=== PATIENT | male | born 1960 | race Caucasian/White ===

== ENCOUNTER 2017-09-17 13:28 | Emergency (ER) | payer OTHER, SELFPAY ==
[~2017-09-17] VITALS: Ht 180.3 cm; Wt 80.7 kg
[~2017-09-17 13:28] MED LIST: ABILIFY 5 MG TAB5 M1 PO; ABILIFY10 MG OR; ADDERALL 10 MG10 MG OR; ADDERALL OR; ADULT LOW DOSE81 MG PO; ALIGN4 MG PO; AMOXICILLIN500 M1 PO; AMPHETAMINE SAL15 MG PO; B-12 COMPL1000 MCG/1 IM; B12INJ OR; BACLOFEN 10MG T10 M1 OR; BACLOFEN 10MG T10 MG PO; BAYER CHEWABLE81 MG PO; BRILINTA90 MG PO; CIPROFLOXACIN500 M1 OR; CIPROFLOXACIN500 M1 PO; CLONAZEPAM 1 MG1 M1 PO; CLONAZEPAM OR; COLACE100 MG OR; COLACE100 MG PO; CYMBALTA30 MG OR; CYMBALTA60 MG PO; DULCOLAX5 MG OR; FLAGYL500 MG OR; FLAGYL500 MG PO; HYDROCODON-ACE1 EA12 PO; HYDROCODON-ACE1 EAC1 OR; HYDROCODON-ACE1 EAC7 OR; HYDROCODON-ACE1 EAC7 PO; HYDROCODONE-APA1 TA1 PO; IMDUR 30 MG TAB30 M1 PO; NASONEX17 GM NS; NITROGLYCERIN0.4 MG SL; PERCOCET 5-3251 EACH PO; PLAVIX 75 MG TA75 MG PO; REQUIP3 MG OR; REQUIP3 MG PO; SIMVASTATIN40 MG PO
[2017-09-17] MEDS ORDERED: PLAVIX 75 MG TA75 M1 PO (13:48)
[2017-09-17] MEDS ORDERED: BACLOFEN 10MG T10 MG PO (15:23)
[2017-09-17] MEDS ORDERED: OXYCODONE HCL 55 MG PO (15:23)
[2017-09-17] MEDS ORDERED: PREDNISONE 20 M20 MG PO (15:23)
[2017-09-17 15:36] VITALS: BP 158/97
== END 2017-09-17 15:30 | disposition home or self-care (01) ==
LOC: ER 13:28
DX: M54.5 Low back pain (principal); F17.210 Nicotine dependence, cigarettes, uncomplicated; G45.9 Transient cerebral ischemic attack, unspecified; I25.2 Old myocardial infarction; D45 Polycythemia vera; K50.90 Crohn's disease, unspecified, without complications; E78.5 Hyperlipidemia, unspecified; C62.90 Malignant neoplasm of unspecified testis, unspecified whether descended or undescended; Z88.8 Allergy status to other drugs, medicaments and biological substances

== ENCOUNTER 2017-09-21 14:54 | Inpatient (IN) | payer OTHER, SELFPAY ==
[~2017-09-21] VITALS: Ht 180.3 cm; Wt 83.9 kg
[2017-09-21 14:54] VITALS: BP 178/111
[~2017-09-21 14:54] MED LIST changes: +OXYCODONE HCL 55 MG PO; +PLAVIX 75 MG TA75 M1 PO; +PREDNISONE 20 M20 MG PO
[2017-09-21 16:09] LABS: CALCIUM 9.1 mg/dL (8.5-10.1); CREATININE 0.8 mg/dL (0.7-1.3); POTASSIUM 3.9 mmol/L (3.5-5.1)
[2017-09-21 18:02] VITALS: BP 168/96
[2017-09-21 19:43] VITALS: BP 172/88
[2017-09-21 19:45] VITALS: BP 184/118
[2017-09-22 00:21] VITALS: BP 148/88
[2017-09-22 04:30] VITALS: BP 161/101
[2017-09-22 08:55] VITALS: BP 172/114
[2017-09-22 16:00] VITALS: BP 119/78
[2017-09-22 20:00] VITALS: BP 111/72
[2017-09-23 04:00] VITALS: BP 145/89
[2017-09-23 07:38] VITALS: BP 146/99
[2017-09-23 12:54] VITALS: BP 138/84
[2017-09-23 15:25] VITALS: BP 123/69
[2017-09-23 19:17] VITALS: BP 136/82
[2017-09-24 00:09] VITALS: BP 138/89
[2017-09-24 03:30] VITALS: BP 147/93
[2017-09-24] MEDS ORDERED: OXYCODONE HCL 55 MG PO (08:24)
[2017-09-24] MEDS ORDERED: BACLOFEN 10MG T10 MG PO (08:24)
[2017-09-24] MEDS ORDERED: PREDNISONE 10 M10 MG PO (08:28)
[2017-09-24 09:49] VITALS: BP 145/80
== END 2017-09-24 13:04 | disposition home or self-care (01) | DRG 552 ==
LOC: ER 14:54 → EROBS 17:34 → 4E 17:34
PROVIDERS: Emergency Medicine
DX: M51.16 Intervertebral disc disorders with radiculopathy, lumbar region (principal); K50.90 Crohn's disease, unspecified, without complications; E78.5 Hyperlipidemia, unspecified; F98.8 Other specified behavioral and emotional disorders with onset usually occurring in childhood and adolescence; G35 Multiple sclerosis; G47.30 Sleep apnea, unspecified; Z85.841 Personal history of malignant neoplasm of brain; Z86.73 Personal history of transient ischemic attack (TIA), and cerebral infarction without residual deficits; I25.2 Old myocardial infarction; Z85.47 Personal history of malignant neoplasm of testis; Z79.899 Other long term (current) drug therapy; Z88.8 Allergy status to other drugs, medicaments and biological substances; Z87.891 Personal history of nicotine dependence; Z28.21 Immunization not carried out because of patient refusal
CPT/HCPCS: 10084

== ENCOUNTER → 2019-09-26 | Outpatient (CLI) | payer OTHER ==
[~2019-09-26] MED LIST changes: +PREDNISONE 10 M10 MG PO
== END ==
LOC: NUC 07:11
DX: I25.10 Atherosclerotic heart disease of native coronary artery without angina pectoris (principal); I25.2 Old myocardial infarction; Z95.5 Presence of coronary angioplasty implant and graft; Z87.891 Personal history of nicotine dependence

== ENCOUNTER → 2021-01-12 | Outpatient (CLI) | payer OTHER | LOC: CAT 09:10 | PROVIDERS: ATTEND Internal Medicine | DX: I73.9 Peripheral vascular disease, unspecified (principal); I70.0 Atherosclerosis of aorta ==

== ENCOUNTER 2021-04-04 18:35 | Inpatient (IN) | payer OTHER ==
[~2021-04-04] VITALS: Ht 180.3 cm; Wt 92.0 kg
--- NOTE | ~2021-04-04 | EMS ---
[address] [address] EMS Patient Care Report Name: RANCHO FREEMAN Room #: 170-6 ADM IN M.R.#: [id number] Admission: 04/04/21 Attend Phys: Silvia Malone MD Discharge: Date of : 62 Report #: [id number] THIS REPORT FOR: //name// Report Transmitted: 04/04/2021 19:43 EMS Care Summary [facility] MED-ACT Incident [id number] @ 04/04/2021 17:47 Incident Location [address] [place] [address] Patient RANCHO FREEMAN Male, 61 Years 1960 Patient Address [address] [place] [address] Patient History Hypertension (HTN),Hyperlipidemia,Cardiac - Stent,Restless Leg Syndrome, Patient Allergies Fentanyl, Patient Medications Isosorbide, Hydrocodone, Aspirin, Nitroglycerin, Clopidogrel, Requip, Baclofen, Abilify, Diltiazem, Cymbalta, Clonazepam, Chief Complaint Syncope Disposition Transported No Lights/[place] Dispatch Reason Heart Problems/AICD Transported To [facility] Narrative [id number] found the pt lying on the floor being attended to by Storm HARMAN and JEEVAN at [facility]. The report from MARY was that the pt was having chest pain about an hour prior to EMS activation, and also had a syncopal episode. He stated that [address] [address] EMS Patient Care Report Name: RANCHO FREEMAN Room #: 170-6 ADM IN [facility]#: [id number] Admission: 04/04/21 Attend Phys: Silvia Malone MD Discharge: Date of : 62 Report #: [id number] he was sitting in his chair when he started to get hot and "blacked out". The pt would get agitated with EMS while trying to get assessments done, or when EMS would ask him about what complaints he was having. The pt denies any shortness of breath, headaches, blurred vision, abdominal pain, diarrhea, recent illness, or recent trauma. The pt was able to walk outside to the cot. The pt refused EMS IV while en route. He stated that he just wanted the ER to do it. The pt's condition remained unchanged en route and with hand off to ED RN. The pt was able to slide himself from EMS cot to ED bed. 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 CLEANER HAND,BP: 121/72 M,PULSE: 48,RR: 14 R,SPO2: 96 Ox,ETCO2: ,B,PAIN: 0,GCS: 15, 17:46,Call Received 17:46,Psap Call 17:47,Dispatched 17:48,En Route 17:56,On Scene 17:58,At Patient 17:59,ALS Assessment,Response: UnchangedSucceeded, 17:59,BP: / M,PULSE: 49,RR: R,SPO2: Ox,ETCO2: ,BG: ,PAIN: 0,GCS: , 18:07,12-Lead ECG,Response: UnchangedSucceeded, 18:07,BP: / M,PULSE: 53,RR: R,SPO2: Ox,ETCO2: ,BG: ,PAIN: ,GCS: , 18:18,BP: 155/84 M,PULSE: 49,RR: 14 R,SPO2: 99 Ox,ETCO2: ,BG: ,PAIN: ,GCS: , 18:19,12-Lead ECG,Response: UnchangedSucceeded, 18:19,BP: / M,PULSE: 51,RR: 14 R,SPO2: 98 Ox,ETCO2: ,BG: ,PAIN: 0,GCS: , 18:20,Depart Scene 18:25,Aspirin - 243 Milligrams (mg) - Oral,Response: Improved [facility] [address] [place] [address] EMS Patient Care Report Name: RANCHO FREEMAN Room #: 170-6 ADM IN M.R.#: [id number] Admission: 04/04/21 Attend Phys: Silvia Malone MD Discharge: Date of : 62 Report #: [id number] 18:25,BP: 126/76 M,PULSE: 51,RR: 14 R,SPO2: 97 Ox,ETCO2: ,BG: ,PAIN: ,GCS: , 18:29,At Destination 18:48,Call Closed Disclaimer v1.1 Copyright 2020 [employer] This EMS Care Summary contains data elements from the applicable legal record (which may be displayed differently). It is designed to provide pertinent information for the following purposes: continuity of care, clinical quality, and state data reporting. The complete legal record is available to ED staff and administrators of the receiving hospital in [employer] Patient Tracker. All data is provided "as is."
[2021-04-04 19:11] LABS: ABSOLUTE NEUTROPHILS 5.1 thou/uL (1.4-8.2); BASOPHILS 0.9 % (0.0-2.0); EOSINOPHILS 0.9 % (0.0-3.0); HEMATOCRIT 44.8 % (42.0-52.0); HEMOGLOBIN 15.3 gm/dL (14.0-18.0); LYMPHOCYTES 15.8 % (24.0-44.0); MCH 31.1 pg (26.0-34.0); MCHC 34.2 g/dL (28.0-37.0); MCV 90.8 fL (80.0-100.0); MONOCYTES 6.7 % (1.0-8.0); PLATELET COUNT 128 thou/uL (150-400); POLYS 75.7 % (36.0-66.0); RBC 4.93 mil/uL (4.50-6.00); RDW 14.1 % (10.5-14.5); WBC 6.8 thou/uL (4.0-11.0)
[2021-04-04 19:14] LABS: ANION GAP 7 mmol/L (7-16); BUN 17 mg/dL (7-18); CALCIUM 8.8 mg/dL (8.5-10.1); CHLORIDE 104 mmol/L (98-107); CO2 29 mmol/L (21-32); CREATININE 1.1 mg/dL (0.7-1.3); GLUCOSE 106 mg/dL (74-106); POTASSIUM 4.2 mmol/L (3.5-5.1); SODIUM 140 mmol/L (136-145)
[2021-04-04 19:21] LABS: ALBUMIN 4.1 g/dL (3.4-5.0); SGPT 57 U/L (16-63); TOTAL PROTEIN 7.9 g/dL (6.4-8.2); TROPONIN-I <0.06 ng/mL (<0.06)
[2021-04-04 19:33] LABS: SGOT 24 U/L (15-37)
[2021-04-04 20:35] VITALS: BP 130/70
[2021-04-04 21:03] VITALS: BP 131/70
[2021-04-04 21:49] VITALS: BP 144/69
[2021-04-04] MEDS ORDERED: PLAVIX 75 MG TA75 MG PO (23:06)
[2021-04-04] MEDS ORDERED: DILTIAZEM ER180 M2 PO (23:07)
[2021-04-05 00:24] VITALS: BP 127/62
[2021-04-05 03:59] VITALS: BP 133/77
--- NOTE | 2021-04-05 04:11 | NUR ---
PT ARRIVED ON THE UNIT AT 2119 FROM ED. C/O INDIGESTION/NAUSEA, LEFT LEG PAIN, .ADMISSION ASSESSMENTS DOCUMENTED. PT LATER EXPRESSED RELIEF FROM INDIGESTION/NAUSEA AFTER MEDS GIVEN, NOW RESTING IN BED, DENIES PAIN.
[2021-04-05 04:24] LABS: CHOLESTEROL 144 mg/dL (<200); HDL CHOLESTEROL 61 mg/dL (>40); LDL CHOLESTEROL 70 mg/dL (<100); TC:HDL 2.4 Ratio (Not establshd); TRIGLYCERIDE 65 mg/dL (<150); VLDL 13 mg/dL (<40)
[2021-04-05 04:29] LABS: SERUM ASSESSMENT Clear
[2021-04-05 08:00] VITALS: BP 123/72
[2021-04-05 08:16] LABS: CALCIUM 9.1 mg/dL (8.5-10.1); POTASSIUM 4.1 mmol/L (3.5-5.1)
--- NOTE | 2021-04-05 09:22 | EKG ---
[place] [place] [address] [facility] [place] [address] ELECTROCARDIOGRAM REPORT Name: RANCHO FREEMAN Room #: 200-I ADM IN M.R.#: [id number] Admission: 04/04/21 Attend Phys: Silvia Malone MD Discharge: Date of : 62 Report #: [id number] 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
--- NOTE | 2021-04-05 09:22 | EKG ---
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 : 1960 Requested By: Catherine Logan Order Number: [id number] MD: Farhat Mariee Measurements Intervals [place] Rate: 55 P: 67 MN: 173 QRS: 36 QRSD: 79 T: -36 QT: 422 QTc: 404 Interpretive Statements Sinus rhythm Probable LVH with secondary repol abnrm Compared to ECG 10/23/2015 04:00:36 Sinus bradycardia no longer present Electronically Signed On 04-05-2021 9:22:41 CDT by Farhat Mariee [email or web address] <ELECTRONICALLY SIGNED> By: Farhat Mariee MD, [facility] 04/05/21 0922 1839 38 Farhat Mariee MD, FACC /EPI
--- NOTE | 2021-04-05 09:23 | EKG ---
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 04/05/21922 7 7 Farhat Mariee MD FACHemal /EPI
[2021-04-05 11:00] VITALS: BP 131/74
[2021-04-05 15:30] VITALS: BP 117/64
[2021-04-05 20:30] VITALS: BP 146/68
[2021-04-06 01:01] VITALS: BP 140/78
[2021-04-06 05:31] VITALS: BP 111/70
--- NOTE | 2021-04-06 07:31 | EKG ---
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
[2021-04-06 08:00] VITALS: BP 130/77
--- NOTE | 2021-04-06 10:03 | 2DMMODE ---
[facility] [place] [address] 2 D/M-MODE ECHOCARDIOGRAM Name: RANCHO FREEMAN Room #: 200-I ADM IN .R.#: [id number] Admission: 04/04/21 Attend Phys: Silvia Malone MD Discharge: Date of : 62 Report #: [id number] THIS REPORT FOR: cc: Jamari Amador MD, Christopher B. MD Santiago, Patrick MD [facility] ~ APPROVED REPORT Study performed: 04/06/2021 09:20:55 EXAM: Comprehensive 2D, Doppler, and color-flow Echocardiogram Patient Location: Bedside Room #: 200 Status: routine BSA: 2.12 HR: 63 bpm BP: 111/70 mmHg Rhythm: NSR Other Information Study Quality: Good Indications Chest Pain Hx: SC, stents, PVD, TIA. 2D Dimensions RVDd: 40.53 mm IVSd: 10.17 (7-11mm) LVOT Diam: 21.41 (18-24mm) LVDd: 47.87 mm PWd: 10.17 (7-11mm) Ascending Ao: 34.17 (22-36mm) LVDs: 34.63 (25-40mm) Left Atrium: 36.34 (27-40mm) Aortic Root: 36.00 mm Volumes Left Atrial Volume (Systole) Single Plane 4CH: 63.08 mL Single Plane 2CH: 51.54 mL LA ESV Index: 29.00 mL/m2 Aortic Valve AoV Peak Ricky.: 1.50 m/s AO Peak Gr.: 8.95 mmHg LVOT Max P.67 mmHg LVOT Max V: 1.19 m/s [facility] [address] [address] 2 D/M-MODE ECHOCARDIOGRAM Name: RANCHO FREEMAN Room #: 200-I [facility] IN [facility]#: [id number] Admission: 04/04/21 Attend Phys: Silvia Malone, Discharge: Date of : 62 Report #: [id number] [place] Vmax: 2.86 cm2 Mitral Valve E/A Ratio: 1.2 MV Decel. Time: 177.97 ms MV E Max Ricky.: 0.91 m/s MV A Ricky.: 0.74 m/s MV PHT: 51.61 ms IVRT: 69.20 ms Pulmonary Valve PV Peak Ricky.: 1.10 m/s PV Peak Gr.: 4.86 mmHg Pulmonary Vein P Vein S: 0.35 m/s P Vein D: 0.54 m/s P Vein S/D Ratio: 0.65 Tricuspid Valve TR Peak Ricky.: 3.17 m/s RAP Estimate: 5.00 mmHg TR Peak Gr.: 40.08 mmHg PA Pressure: 45.00 mmHg Left Ventricle The left ventricle is normal size. There is normal LV segmental wall motion. There is normal left ventricular wall thickness. Left ventricular systolic function is normal. LVEF is 55-60%. Moderate diastolic dysfunction is present (pseudonormal filling). Right Ventricle The right ventricle is normal size. The right ventricular systolic function is normal. Atria The left atrium size is normal. The right atrium size is normal. Aortic Valve The aortic valve is normal in structure. No aortic regurgitation is present. There is no aortic valvular stenosis. Mitral Valve The mitral valve is normal in structure. Mild mitral regurgitation. No evidence of mitral valve stenosis. Tricuspid Valve [facility] [place] [place] [address] 2 D/M-MODE ECHOCARDIOGRAM Name: RANCHO FREEMAN Room #: 200-I [facility] IN [facility]#: [id number] Admission: 04/04/21 Attend Phys: Silvia Malone, Discharge: Date of : 62 Report #: [id number] The tricuspid valve is normal in structure. Mild tricuspid regurgitation. Estiamted PAP is 45mmHg. Pulmonic Valve The pulmonary valve is normal in structure. Trace pulmonic regurgitation. Great Vessels The aortic root is normal in size. The ascending aorta is normal in size. IVC is normal in size and collapses >50% with inspiration. Pericardium There is no pericardial effusion. <Conclusion> Normal left ventricular size/wall thickness Ejection fraction 55% Normal right ventricular size/function Normal atrial size Color-flow Doppler study was performed of the aortic/mitral/tricuspid/pulmonary valve Normal aortic valve structure and function Mild mitral valve insufficiency Mild tricuspid valve insufficiency Pulmonary systolic pressure estimated 45 mmHg No pericardial effusion Normal aortic root size <ELECTRONICALLY SIGNED> By: Farhat Mariee MD, FACC 04/06/21 100 02 02 Farhat Mariee MD, FACC /INF
[2021-04-06 16:44] VITALS: BP 130/77
[2021-04-17] MEDS ORDERED: DULOXETINE HCL60 MG PO (16:02)
[2021-04-17] MEDS ORDERED: CLONAZEPAM 1 MG1 M1 PO (16:02)
[2021-04-17] MEDS ORDERED: ABILIFY 2 MG2 M1 PO (16:03)
== END 2021-04-06 18:07 | disposition home or self-care (01) | DRG 303 ==
LOC: ER 18:35 → 2N 20:21 → EROBS 20:21 → 2N 21:30
PROVIDERS: Nurse Practitioner Family; ADMIT Internal Medicine; ATTEND Internal Medicine
DX: I25.10 Atherosclerotic heart disease of native coronary artery without angina pectoris (principal); K50.90 Crohn's disease, unspecified, without complications; R07.9 Chest pain, unspecified; G35 Multiple sclerosis; E78.5 Hyperlipidemia, unspecified; I10 Essential (primary) hypertension; I73.9 Peripheral vascular disease, unspecified; C62.90 Malignant neoplasm of unspecified testis, unspecified whether descended or undescended; Z20.822 Contact with and (suspected) exposure to COVID-19; Z95.5 Presence of coronary angioplasty implant and graft; Z86.73 Personal history of transient ischemic attack (TIA), and cerebral infarction without residual deficits; I25.2 Old myocardial infarction; Z79.82 Long term (current) use of aspirin; Z79.899 Other long term (current) drug therapy; Z88.8 Allergy status to other drugs, medicaments and biological substances; Z87.891 Personal history of nicotine dependence
CPT/HCPCS: 10081

== ENCOUNTER → 2021-04-21 | Outpatient (CLI) | payer OTHER ==
[~2021-04-21] MED LIST changes: +ABILIFY 2 MG2 M1 PO; +DILTIAZEM ER180 M2 PO; +DULOXETINE HCL60 MG PO
[2021-04-21 12:26] LABS: ABSOLUTE NEUTROPHILS 2.2 thou/uL (1.4-8.2); BASOPHILS 0.9 % (0.0-2.0); EOSINOPHILS 1.7 % (0.0-3.0); HEMOGLOBIN 15.2 gm/dL (14.0-18.0); MCH 31.3 pg (26.0-34.0); MCHC 34.6 g/dL (28.0-37.0); MCV 90.7 fL (80.0-100.0); MONOCYTES 9.3 % (1.0-8.0); PLATELET COUNT 120 thou/uL (150-400); POLYS 48.1 % (36.0-66.0); RBC 4.85 mil/uL (4.50-6.00); RDW 14.7 % (10.5-14.5); WBC 4.7 thou/uL (4.0-11.0)
[2021-04-21 12:40] LABS: APTT 26.8 Seconds (24.5-32.8); PROTIME 10.9 Seconds (10.5-12.1)
[2021-04-21 12:42] LABS: ALBUMIN 4.2 g/dL (3.4-5.0); CREATININE 1.2 mg/dL (0.7-1.3); POTASSIUM 4.5 mmol/L (3.5-5.1); TOTAL BILIRUBIN 1.3 mg/dL (0.2-1.0); TOTAL PROTEIN 7.5 g/dL (6.4-8.2)
[2021-04-23 10:55] LABS: URINE BLOOD NEGATIVE (Negative); URINE CLARITY CLEAR; URINE GLUCOSE-RANDOM* TRACE (Negative); URINE KETONES NEGATIVE (Negative); URINE LEUKOCYTES-REFLEX NEGATIVE (Negative); URINE NITRITE-REFLEX NEGATIVE (Negative); URINE PROTEIN (DIPSTICK) NEGATIVE (Negative); URINE SPECIFIC GRAVITY >= 1.030 (1.005-1.035)
[2021-04-23 10:56] LABS: ICTOTEST (BILI CONFIRMATORY) Negative (Negative); URINE BILIRUBIN NEGATIVE (Negative); URINE COLOR DARK YELLOW
== END ==
LOC: PAC 10:38 → ULTRA 10:38 → PAC 15:55
PROVIDERS: ATTEND Surgery Vascular Surgery
DX: Z01.818 Encounter for other preprocedural examination (principal); I73.9 Peripheral vascular disease, unspecified; M85.88 Other specified disorders of bone density and structure, other site

== ENCOUNTER → 2021-04-27 | Outpatient (CLI) | payer OTHER | LOC: LAB 10:57 | PROVIDERS: Surgery Vascular Surgery; ATTEND Student in an Organized Health Care Education/Training Program | DX: Z01.812 Encounter for preprocedural laboratory examination (principal); Z20.822 Contact with and (suspected) exposure to COVID-19 ==

== ENCOUNTER 2021-04-28 06:22 | Inpatient (IN) | payer OTHER ==
[~2021-04-28] VITALS: Ht 180.3 cm; Wt 94.2 kg
[2021-04-28 08:18] VITALS: BP 132/74
[2021-04-28 16:51] VITALS: BP 111/55
[2021-04-28 17:00] VITALS: BP 116/59
[2021-04-28 17:17] LABS: URINE BILIRUBIN NEGATIVE (Negative); URINE BLOOD 3+ (Negative); URINE CLARITY CLEAR; URINE COLOR YELLOW; URINE GLUCOSE-RANDOM* TRACE (Negative); URINE KETONES NEGATIVE (Negative); URINE LEUKOCYTES-REFLEX NEGATIVE (Negative); URINE NITRITE-REFLEX NEGATIVE (Negative); URINE PROTEIN (DIPSTICK) NEGATIVE (Negative); URINE UROBILINOGEN 0.2 E.U./dl (0.2-1.0)
[2021-04-28 17:48] LABS: SQUAMOUS 0-3 Few /LPF (0-3)
[2021-04-28 17:49] LABS: BACTERIA-REFLEX 1-9 Few /HPF (None Seen); MUCUS 0-3 Light strn/LPF (None Seen); URINE WBC-REFLEX 6-15 Few /HPF (0-5)
[2021-04-28 18:00] VITALS: BP 114/59
[2021-04-28 19:00] VITALS: BP 107/59
[2021-04-28 20:00] VITALS: BP 102/58
--- NOTE | 2021-04-28 20:31 | NUR ---
165-RECEIVED PT FROM VIA BED.--VW 1829-SLEEPING p PAIN MED EARLIER. D/W PHARMACIST MABEL PRIOR TO GIVING FENTANYL IT BEING LISTED ALLERGY. HAD BEEN GIVEN IN O.R. W/O PROBLEMS. S.O. STATES NOT A TRUE ALLERGY THAT HE IS AWARE OF. MABEL STATED HE SPOKE W [facility]WHEN IT WAS ORDERED & THEY ARE AWARE OF INTOLERANCE BUT WANT IT GIVEN. FENTANYL GIVEN W/O ANY N/V,NO RASH OR BREAKOUT,NO SOB.--VW
[2021-04-29] VITALS (7 sets, daily range): BP systolic 114–128; BP diastolic 62–73
[2021-04-29 05:46] LABS: HEMOGLOBIN 11.4 gm/dL (14.0-18.0); MCH 31.6 pg (26.0-34.0); MCHC 34.4 g/dL (28.0-37.0); MCV 91.9 fL (80.0-100.0); RBC 3.6 mil/uL (4.50-6.00); RDW 14.4 % (10.5-14.5); WBC 10.3 thou/uL (4.0-11.0)
[2021-04-29 06:09] LABS: POTASSIUM 4.5 mmol/L (3.5-5.1)
--- NOTE | 2021-04-29 08:40 | NUR ---
Nurse updated Anmol on patient status. Will call him and inform him if patient transfers.
[2021-04-29 10:05] LABS: % SATURATION 18 % (20-39); IRON 51 ug/dL (65-175); TIBC 278 ug/dL (250-450)
--- NOTE | 2021-04-29 16:45 | NUR ---
Chart reviewed and case discussed with the care team. Pt is progressing s/p Fempop bypass with likely transfer out of the ICU this evening when bed available. PT/OT evals in progress. The pt is from home where he lives with his sign other. They have two steps to enter than a flight down to laundry in the basement. He can stay on the main level. He has a wooded cane as well as a FWW if needed at dc. The pt was driving and indep with gait and adl's prior to admission. He does some Iadl's and s.o. does the cooking. Dc plan is to go home with outpt f/u. Will follow along should HH be recommended.
--- NOTE | 2021-04-29 20:55 | NUR ---
REPORT GIVEN RN TO RN AT BEDSIDE FROM THE ICU TO THE CCU AT 1930. PT HAS STABLE VS AND KIMBERLY. HE HAS TWO AMRIT DRAINS ( IN THE RT GROIN AND RIGHT CALF). HE IS POST-OP DAY 1 FOR A FEM POP , DRESSINGS ARE DRY INTACT. PT HAS A WOUND VAC THAT IS 125 SUCTION, PATENT , AND INTACT. PT DID GET UP WITH PT TO THE CHAIR AT 0900 AND BACK TO BED AT 1100. PT IS A/O X4 AND VOICES NO CONCERNS.
[2021-04-30 04:23] VITALS: BP 124/72
--- NOTE | 2021-04-30 06:36 | NUR ---
RECEIVED REPORT FROM SHERI LINUX SUPPORT ENGINEER.PATIENT ARRIVED TO ROOM 200.A/O X 4.UP WITH 1-2 ASSIST.AMRIT X 2 NOTED WITH SANGUINOUS DRAINAGE.WOUND VAC NOTED TO RIGHT LEG/GROIN.LOWER EXTREMITIES PINK AND WARM.DOPPLER PULSES.MONITOR SHOWS SR.POC CONTINUED.
[2021-04-30 07:00] VITALS: BP 124/76
[2021-04-30 10:55] VITALS: BP 121/71
[2021-04-30 15:15] VITALS: BP 119/74
--- NOTE | 2021-04-30 17:10 | O ---
[facility] [place] [address] OPERATIVE REPORT Name: RANCHO FREEMAN Room #: 200-I ADM IN M.R.#: [id number] Admission: 04/28/21 Attend Phys: Perry Dao MD Discharge: Date of : 62 Report #: [id number] THIS REPORT FOR: cc: Jamari Amador MD, Christopher B. MD Forman,Perry Poe MD ~ DATE OF SERVICE: 04/28/2021 PREOPERATIVE DIAGNOSIS: Right lower extremity arterial occlusive disease. POSTOPERATIVE DIAGNOSIS: Right lower extremity arterial occlusive disease. OPERATIONS: Right femoral to above knee popliteal artery bypass with reversed autogenous greater saphenous vein and intraoperative arteriogram. SURGEON: Perry Dao MD ASSOCIATE DENTIST: CARITO Tee. ANESTHESIA: General. INDICATIONS: The patient is a 61-year-old known to me from previous problems with lower extremity arterial occlusive disease. The patient has a chronically occluded right superficial femoral artery. The patient has begun having debilitating claudication. Inflow procedures were done by ____ to maximize inflow into the leg and symptoms have persisted despite this. FINDINGS AND TECHNIQUE: After general anesthesia was established, an incision was made above and medial to the right knee to expose the greater saphenous vein. This incision was then deepened to expose the above knee popliteal artery. This appeared to be a soft vessel as hoped from the arteriogram. An incision was made in the groin. 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 Ultimately, though, we were able to dissect free and exposed and controlled the common femoral artery, deep femoral artery and proximal superficial femoral artery. The femoral artery itself was diseased and it was necessary to expose a good length of this for control and a satisfactory proximal site. Saphenous vein was then exposed and harvested for use as a conduit. When we had sufficient length of saphenous vein harvested, 10,000 units of heparin were given. The reversed vein was sewn in end-to-side fashion to the common femoral artery. The vein was then brought through the subcutaneous tunnel and the distal end of [facility] [address] [place] [address] OPERATIVE REPORT Name: RANCHO FREEMAN Room #: 200-I ADM IN M.R.#: [id number] Admission: 04/28/21 Attend Phys: Perry Dao MD Discharge: Date of : 62 Report #: [id number] the reversed vein was sewn to the side of the above knee popliteal artery. When this was done, flow was established, good Doppler signal was obtained. Flow was measured in the vein and it was found to be approximately 120 mL per minute. An arteriogram was then taken that showed good flow through the vein and no problem at the distal anastomotic site. Protamine was given to reverse the heparin. Hemostasis was ascertained. Drains were brought through separate stab wound. Incisions were then closed in layers and the patient was taken to the recovery area in good condition having tolerated the procedure well. All counts were reported as correct. <ELECTRONICALLY SIGNED> By: Perry Dao MD 04/30/21 1710 0708 0734 Perry Dao MD /nt
--- NOTE | 2021-04-30 19:08 | NUR ---
PATIENT CARES WERE ASSUMED AT SHIFT CHANGE. PATIENT WAS ASSESSED AND MEDS WERE PASSED. DOCTOR WANTS BETTER DOCUMENTATION ON THE AMRIT DRAINS. TONIGHT THE ORDER TO DO DOPPLER Q2 HOURS WAS PLACED. THE DOPPLER IS TO BE KEPT IN THE ROOM. PATIENT FAMILY REPORTED THAT HE IS SHOWING SIGNS OF DEPRESSION AND REQUESTED A PHSYC EVAL. ROUNDS WERE MADE. THE ALARM IS ON AND THE BED IS IN A LOW AND LOCKED POSITION
[2021-04-30 19:29] VITALS: BP 111/67
--- NOTE | 2021-05-01 03:22 | NUR ---
ASSUMED CARE OF PT AT 1900, PT IS A/O X4, AMRIT DRAIN X [address] AND DRAINING, WOUND VAC IN PLACE WITH -125 CONTINUOUS SUCTION. DOPPLER AT BEDSIDE. PT C/O RLE PAIN, RESOLVED WITH MEDICATION. ASSESSMENT COMPLETED NOTED. PT DENIES CP, DIZZINESS OR HEADACHE. WILL CONTINUE TO WORK TOWARDS PT POC.
[2021-05-01 05:35] VITALS: BP 115/63
[2021-05-01 07:09] VITALS: BP 133/70
[2021-05-01 11:15] VITALS: BP 127/58
--- NOTE | 2021-05-01 14:24 | NUR ---
Case discussed with the care team. Dc timeframe uncertain. Pt with depressed mood this am per staff. PT/OT working with him. AMRIT drains in place/prevena vac per CTS. Will continue to follow should the pt have dc planning needs. Goal is home with outpt f/u.
[2021-05-01 16:01] VITALS: BP 109/66
--- NOTE | 2021-05-01 18:00 | NUR ---
PT ALERT AND ORIENT TIMES FOUR. UP IN CORRIDOR WITH PT. C/O PAIN EARLIER IN SHIFT, PRN PAIN MEDS GIVEN. RIGHT PULSE DOPPLED WITH GOOD PULSE. AMRIT DRAINS WITH SS DRAINAGE. WOUND VAC INTACT. SR-SB PER MONITOR. REFUSED VIT B. ANXIOUS ABOUT WANTING TO GO HOME. DR. MIRAMONTES/ KRISTOPHER BOTH AT THE BEDSIDE. NO DC ORDERS AT THIS TIME. SLOW PROGRESS TOWARDS DC GOALS. WILL CONTINUE TO MONITOR.
[2021-05-01 19:35] VITALS: BP 127/66
[2021-05-02 04:27] VITALS: BP 126/64
[2021-05-02 07:15] VITALS: BP 104/65
--- NOTE | 2021-05-02 07:43 | NUR ---
ASSUMED CARE OF PT AT 1900,PT IS A/O X4 ASSESSMENT COMPLETED NOTED. PT C/O RIGHT LEG PAIN WITH PARTIAL RELIEF WITH MEDICATION. WILL CONTINUE TO WORK TOWARDS PT'S POC.
[2021-05-02 10:55] VITALS: BP 120/80
[2021-05-02 12:07] VITALS: BP 118/71
[2021-05-02 13:52] VITALS: BP 120/80
== END 2021-05-02 17:46 | disposition home or self-care (01) | DRG 253 ==
LOC: PRE → OR → TBA 06:22 → ICU 06:22 → 2N 06:22 → OR 09:28 → PRE 10:57 → EDSTATUS 13:17 → PRE 13:29 → ICU 16:32 → 2N 04-29 20:35
PROVIDERS: Physician Assistant; ADMIT Surgery Vascular Surgery; ATTEND Surgery Vascular Surgery
PROC: 06BP4ZZ Excision of Right Saphenous Vein, Percutaneous Endoscopic Approach (ICD-10-PCS; principal; 2021-04-28)
PROC: 041 Lower Arteries, Bypass (ICD-10-PCS; principal; 2021-04-28)
PROC: B41F1ZZ Fluoroscopy of Right Lower Extremity Arteries using Low Osmolar Contrast (ICD-10-PCS; principal; 2021-04-28)
DX: I73.9 Peripheral vascular disease, unspecified (principal); K50.90 Crohn's disease, unspecified, without complications; I77.1 Stricture of artery; D69.6 Thrombocytopenia, unspecified; I25.10 Atherosclerotic heart disease of native coronary artery without angina pectoris; I10 Essential (primary) hypertension; F32.9 Major depressive disorder, single episode, unspecified; F41.9 Anxiety disorder, unspecified; D64.9 Anemia, unspecified; E78.5 Hyperlipidemia, unspecified; Z86.73 Personal history of transient ischemic attack (TIA), and cerebral infarction without residual deficits; Z85.47 Personal history of malignant neoplasm of testis; Z88.8 Allergy status to other drugs, medicaments and biological substances; Z98.1 Arthrodesis status; I25.2 Old myocardial infarction; Z92.21 Personal history of antineoplastic chemotherapy; Z92.3 Personal history of irradiation; Z95.5 Presence of coronary angioplasty implant and graft
CPT/HCPCS: 10078; 10081; 10204; 47375; 50010; 50101; 50331; 50386; 50455; 50643; 50953; 51412; 51481; 52287; 56524; 56525; 56526; 56527; 56528; 56534; 56668; 56760; 57092; 57093; 57167; 57242; 58585; 58710; 62110; 62900; 65002; 65020; 65090; 70005

== ENCOUNTER → 2021-07-21 | Outpatient (CLI) | payer OTHER | LOC: SJCVC 14:00 | PROVIDERS: ATTEND Internal Medicine | DX: R94.31 Abnormal electrocardiogram [ECG] [EKG] (principal); R00.1 Bradycardia, unspecified; R06.00 Dyspnea, unspecified; E78.00 Pure hypercholesterolemia, unspecified; I10 Essential (primary) hypertension; I25.10 Atherosclerotic heart disease of native coronary artery without angina pectoris; Z87.891 Personal history of nicotine dependence; Z88.5 Allergy status to narcotic agent; Z88.8 Allergy status to other drugs, medicaments and biological substances; Z79.82 Long term (current) use of aspirin; Z79.899 Other long term (current) drug therapy; Z79.891 Long term (current) use of opiate analgesic; Z13.220 Encounter for screening for lipoid disorders; Z95.818 Presence of other cardiac implants and grafts; Z95.1 Presence of aortocoronary bypass graft ==

== ENCOUNTER → 2021-07-22 | Outpatient (CLI) | payer OTHER | LOC: SJCVCIMAG 09:50 | PROVIDERS: ATTEND Internal Medicine | DX: I25.10 Atherosclerotic heart disease of native coronary artery without angina pectoris (principal); I10 Essential (primary) hypertension; E78.00 Pure hypercholesterolemia, unspecified; I73.9 Peripheral vascular disease, unspecified; I25.2 Old myocardial infarction; R06.00 Dyspnea, unspecified; R06.02 Shortness of breath; Z88.8 Allergy status to other drugs, medicaments and biological substances; Z88.5 Allergy status to narcotic agent; Z79.82 Long term (current) use of aspirin; Z79.899 Other long term (current) drug therapy; Z95.818 Presence of other cardiac implants and grafts; Z95.1 Presence of aortocoronary bypass graft; Z82.49 Family history of ischemic heart disease and other diseases of the circulatory system; Z87.891 Personal history of nicotine dependence ==

== ENCOUNTER → 2021-09-17 | Outpatient (CLI) | payer OTHER | LOC: RAD 09:43 | PROVIDERS: ATTEND Internal Medicine | DX: R06.00 Dyspnea, unspecified (principal); M47.814 Spondylosis without myelopathy or radiculopathy, thoracic region ==

== ENCOUNTER → 2021-10-02 | Outpatient (CLI) | payer OTHER | LOC: CAT 10:36 | PROVIDERS: ATTEND Internal Medicine | DX: Z12.2 Encounter for screening for malignant neoplasm of respiratory organs (principal); Z87.891 Personal history of nicotine dependence ==